=== PATIENT | female | born 1980 | race Caucasian/White ===

== ENCOUNTER → 2018-11-11 | Outpatient (CLI) | payer OTHER | LOC: M.RAD 11:48 | DX: Z12.31 Encounter for screening mammogram for malignant neoplasm of breast (principal); F17.200 Nicotine dependence, unspecified, uncomplicated; R68.89 Other general symptoms and signs; R05 Cough ==

== ENCOUNTER → 2018-11-14 | Outpatient (CLI) | payer OTHER | LOC: M.ULTRA 10:00 | DX: N63.21 Unspecified lump in the left breast, upper outer quadrant (principal); N64.89 Other specified disorders of breast ==